=== PATIENT | female | born 1975 ===

== ENCOUNTER 2018-09-05 13:51 | Emergency (ER) | payer OTHER ==
--- NOTE | 2018-09-05 14:35 | Emergency Department Report ---
Blank Doc - Documentation Documentation: This is a 43-year-old female that presents lower back pain and radiation to bi lateral legs. Denies any trauma. Denies any urinary symptoms. This initial assessment/diagnostic orders/clinical plan/treatment(s) is/are subject to change based on patient's health status, clinical progression and re- assessment by fellow clinical providers in the ED. Further treatment and workup at subsequent clinical providers discretion. Patient/guardians urged not to elope from the ED as their condition may be serious if not clinically assessed and managed. Initial orders include: 1- Patient sent to [facility] for further evaluation and treatment 2- UA
[2018-09-05 14:40] VITALS: BP 113/61
--- NOTE | 2018-09-05 14:55 | Emergency Department Report ---
ED Back Pain/Injury HPI - General Chief Complaint: Extremity Problem,Nontraumatic Stated Complaint: HAND PAIN/BACK PAIN/FEET PAIN Time Seen by Provider: 09/05/18 14:31 Source: patient Limitations: No Limitations - History of Present Illness Initial Comments: Patient is a 43-year-old female who comes to the ER today complaining of back pain and arm pain and leg pain. [employer] has been used and patient reports that she went to her primary care physician yesterday and she was treated for back pain. She was sent home with Motrin. She is also given Celexa yesterday. The primary care doctor did check her urine and the patient was not told she had a UTI. The primary care did not do any blood work. Patient took the medications as instructed but states that the pain has gotten no better in fact it has gotten worse so she presents to the ER. pt has no urinary symptoms. no vaginal discharge or bleeding. no abd pain. no trauma. no fever. Vital signs are stable she has no chest pain or shortness of breath. She is ambulatory, nontoxic taking by mouth and without fever. Past medical history positive for anemia Past surgical history Hysterectomy Home medications Motrin and Celexa given to her yesterday Fe - Related Data Previous Rx's Medication Instructions Recorded Last Taken Type Cyclobenzaprine [Flexeril] 10 mg PO TID PRN #10 tablet 09/05/18 Unknown Rx predniSONE [Deltasone] 20 mg PO DAILY #5 tablet 09/05/18 Unknown Rx Allergies Allergy/AdvReac Type Severity Reaction Status Date / Time No Known Allergies Allergy Unverified 09/05/18 16:25 ED Review of Systems ROS: Stated complaint: HAND PAIN/BACK PAIN/FEET PAIN Other details as noted in HPI Comment: All other systems reviewed and negative Constitutional: denies: chills, fever Eyes: denies: eye pain ENT: denies: throat pain Respiratory: denies: orthopnea Cardiovascular: denies: chest pain Endocrine: denies: excessive sweating Gastrointestinal: denies: abdominal pain, nausea, vomiting Genitourinary: denies: urgency, dysuria Musculoskeletal: as per HPI, back pain Skin: denies: rash, lesions Neurological: denies: headache Psychiatric: denies: anxiety, depression Hematological/Lymphatic: denies: easy bleeding ED Past Medical Hx - Past Medical History anemia Surgical history: hysterectomy Psychiatric history: no pertinent history Family history: no significant family history - Social History Smoking Status: Never Smoker Alcohol use: none Drug use: none ED Back Pain Physical Exam - Exam General: Vital signs noted. No distress. Alert and acting appropriately. Back/Abdomen: No Abdominal Tenderness, No Perithoracic Tenderness, No Perilumbar Tenderness, No Sacroiliac Tenderness, No Flank Tenderness, No Straight Leg Raise Pain Neuro: Yes Normal Sensation, Yes Normal DTR's, Yes Normal Gait, No Motor Weakness ED Course Vital Signs 09/05/18 14:31 Temperature 98 F Pulse Rate 76 Respiratory 18 Rate Blood Pressure 113/61 O2 Sat by Pulse 95 Oximetry ED Medical Decision Making - Lab Data Result diagrams: 09/05/18 15:26 09/05/18 15:26 - Medical Decision Making no UTI at pcp yesterday no abd pain. no dysuria no CVA tenderness no fever no trauma no n/v/d non toxic ambulatory taking po - Differential Diagnosis ro symptomatic anemia Critical care attestation.: If time is entered above; I have spent that time in minutes in the direct care of this critically ill patient, excluding procedure time. ED Disposition Clinical Impression: Back pain Disposition: DC-01 TO HOME OR SELFCARE Is pt being admited?: No Does the pt Need Aspirin: No Condition: Stable Instructions: Low Back Strain (ED) Additional Instructions: MEDICATIONS ORDERED TODAY DIET TOLERATED ACTIVITY TOLERATED REST HYDRATE WELL WITH WATER MOTRIN OR TYLENOL FOR FEVER OR PAIN FOLLOW UP WITH PCP, REFERRAL BELOW. RETURN TO ER FOR WORSENING SYMPTOMS continue your meds given yesterday Prescriptions: predniSONE [Deltasone] 20 mg PO DAILY #5 tablet Cyclobenzaprine [Flexeril] 10 mg PO TID PRN #10 tablet PRN Reason: Muscle Spasm Referrals: [facility] [Outside] - 3-5 Days Time of Disposition: 15:38 Print Language: KINYARWANDA
[2018-09-05] MEDS ORDERED: FLEXERIL PO ONE (15:00)
[2018-09-05] MEDS ORDERED: DECADRON IM ONE (15:00)
[2018-09-05 15:37] LABS: Hematocrit 40.9 % (30.3-42.9); Mean Corpuscular HGB Conc 34 % (30-34); Mean Corpuscular Volume 94 fl (79-97); Platelet Count 295 K/mm3 (140-440); Red Blood Count 4.37 M/mm3 (3.65-5.03); Red Cell Distribution Width 13.3 % (13.2-15.2)
[2018-09-05 16:11] LABS: BUN/Creatinine Ratio 30; Blood Urea Nitrogen 9 mg/dL (7-17); Calcium 9.2 mg/dL (8.4-10.2); Hemolysis Index 7
== END 2018-09-05 16:24 | disposition home or self-care (01) ==
LOC: ED 13:51
DX: M54.9 Dorsalgia, unspecified (principal); M79.603 Pain in arm, unspecified; M79.606 Pain in leg, unspecified; Z90.710 Acquired absence of both cervix and uterus
CPT/HCPCS: 36415; 80048; 85027; 96372; 99283; J1100

== ENCOUNTER 2018-09-11 12:52 | Emergency (ER) | payer SELFPAY ==
[2018-09-11 12:59] VITALS: BP 107/67
--- NOTE | 2018-09-11 12:59 | Emergency Department Report ---
Blank Doc - Documentation Documentation: This is a 43-year-old female that presents with bilateral flank pain with dysu daniella. This initial assessment/diagnostic orders/clinical plan/treatment(s) is/are subject to change based on patient's health status, clinical progression and re- assessment by fellow clinical providers in the ED. Further treatment and workup at subsequent clinical providers discretion. Patient/guardians urged not to elope from the ED as their condition may be serious if not clinically assessed and managed. Initial orders include: 1- Patient sent to [facility] for further evaluation and treatment 2- UA/preg test
[2018-09-11 13:32] LABS: Bacteria,Urine 1+ /HPF (Negative); Bilirubin,Urine NEG (Negative); Blood,Urine NEG (Negative); Color,Urine Yellow (Yellow); HCG Qualitative,Urine Negative (Negative); Mucus,Urine FEW /HPF; Protein,Urine <15 mg/dL mg/dL (Negative); Urobilinogen,Urine < 2.0 mg/dL (<2.0)
--- NOTE | 2018-09-11 16:21 | Emergency Department Report ---
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 Patient states pain is radiating down into her right leg. Denies weakness or numbness. Patient states pain feels like a burning sensation. Patient states medication that she was given last week seemed to help her symptoms, however she ran out. Patient denies urinary symptoms. MD Complaint: back pain -: week(s) (1) Similar Symptoms Previously: No Radiation: right leg Severity: moderate Quality: burning Consistency: intermittent Improves With: supine Worsens With: sitting upright Context: unknown Associated Symptoms: denies: numbness, difficulty walking, difficulty urinating, incontinence - Related Data Previous Rx's Medication Instructions Recorded Last Taken Type Cyclobenzaprine [Flexeril 10 MG 10 mg PO TID PRN #10 tablet 09/11/18 Unknown Rx TAB] Naproxen [Naprosyn] 500 mg PO BID #20 tablet 09/11/18 Unknown Rx predniSONE [Deltasone] 20 mg PO DAILY #5 tablet 09/11/18 Unknown Rx Allergies Allergy/AdvReac Type Severity Reaction Status Date / Time No Known Allergies Allergy Unverified 09/05/18 16:25 ED Review of Systems ROS: Stated complaint: BACK PAIN Other details as noted in HPI Comment: All other systems reviewed and negative Constitutional: denies: chills, fever Genitourinary: other (denies incontinence) Musculoskeletal: back pain Neurological: denies: weakness, numbness ED Past Medical Hx - Past Medical History Previous Medical History?: Yes Additional medical history: anemia - Surgical History Past Surgical History?: No - Social History Smoking Status: Never Smoker Substance Use Type: None - Medications Home Medications: Home Medications Medication Instructions Recorded Confirmed Last Taken Type Cyclobenzaprine [Flexeril 10 MG 10 mg PO TID PRN #10 tablet 09/11/18 Unknown Rx TAB] Naproxen [Naprosyn] 500 mg PO BID #20 tablet 09/11/18 Unknown Rx predniSONE [Deltasone] 20 mg PO DAILY #5 tablet 09/11/18 Unknown Rx ED Physical Exam - General Limitations: No Limitations General appearance: alert, in no apparent distress - Head Head exam: Present: atraumatic, normocephalic - Eye Eye exam: Present: normal appearance - ENT ENT exam: Present: mucous membranes moist - Neck Neck exam: Present: normal inspection - Respiratory Respiratory exam: Present: normal lung sounds bilaterally. Absent: respiratory distress - Cardiovascular Cardiovascular Exam: Present: regular rate, normal rhythm - GI/Abdominal GI/Abdominal exam: Present: soft. Absent: distended, tenderness - Extremities Exam Extremities exam: Present: normal inspection, full ROM - Back Exam Back exam: Absent: tenderness, CVA tenderness (R), CVA tenderness (L), vertebral tenderness - Neurological Exam Neurological exam: Present: alert, oriented X3, CN II-XII intact, normal gait. Absent: motor sensory deficit - Psychiatric Psychiatric exam: Present: normal affect, normal mood - Skin Skin exam: Present: warm, dry, intact, normal color ED Course Vital Signs 09/11/18 12:57 Temperature 98.1 F Pulse Rate 76 Respiratory 16 Rate Blood Pressure 107/67 O2 Sat by Pulse 97 Oximetry ED Medical Decision Making - Medical Decision Making - one week hx of radiating, burning low back pain - no signs of cauda equina - nontender to palpation - pt ambulating around exam room and to restroom w/o difficulty - advised ortho f/u - return precautions given - Differential Diagnosis sciatica Critical care attestation.: If time is entered above; I have spent that time in minutes in the direct care of this critically ill patient, excluding procedure time. ED Disposition Clinical Impression: Lumbar radiculopathy Disposition: - TO HOME OR SELFCARE Is pt being admited?: No Condition: Stable Instructions: Lumbar Radiculopathy (ED) Prescriptions: predniSONE [Deltasone] 20 mg PO DAILY #5 tablet Cyclobenzaprine [Flexeril 10 MG TAB] 10 mg PO TID PRN #10 tablet PRN Reason: Muscle Spasm Naproxen [Naprosyn] 500 mg PO BID #20 tablet Referrals: PRIMARY CARE, [Primary Care Provider] - 3-5 Days DOLORES GERARD MD [Staff Physician] - 3-5 Days Time of Disposition: 16:22 Print Language: WOLOF
== END 2018-09-11 16:31 | disposition home or self-care (01) ==
LOC: ED 12:52
DX: M54.16 Radiculopathy, lumbar region (principal); Z86.2 Personal history of diseases of the blood and blood-forming organs and certain disorders involving the immune mechanism
CPT/HCPCS: 81001; 81025; 99283

== ENCOUNTER 2019-08-23 10:10 | Emergency (ER) | payer SELFPAY ==
[2019-08-23 10:18] VITALS: BP 119/67
[2019-08-23 11:34] LABS: Bacteria,Urine 1+ /HPF (Negative); Bilirubin,Urine NEG (Negative); Blood,Urine NEG (Negative); Color,Urine Yellow (Yellow); Protein,Urine <15 mg/dL mg/dL (Negative); Urobilinogen,Urine < 2.0 mg/dL (<2.0)
--- NOTE | 2019-08-23 11:49 | Emergency Department Report ---
ED General Adult HPI - General Chief complaint: Back Pain/Injury Stated complaint: LFT SIDE BACK BAINS/PAIN Time Seen by Provider: 08/23/19 10:45 Source: patient Mode of arrival: Ambulatory Limitations: No Limitations - History of Present Illness Initial comments: Patient is a 44-year-old female is presenting with 4 days of left lower back pain. Patient states there is no pain with movement and she denies any trauma. She states there is some mild dysuria. She has some urinary frequency. Patient vomited once on day 1 but has not had any nausea vomiting since. She denies fever. Severity scale (0 -10): 6 Quality: aching Consistency: constant - Related Data Previous Rx's Medication Instructions Recorded Last Taken Type Cyclobenzaprine [Flexeril 10 MG 10 mg PO TID PRN #10 tablet 09/11/18 Unknown Rx TAB] Naproxen [Naprosyn] 500 mg PO BID #20 tablet 09/11/18 Unknown Rx predniSONE [Deltasone] 20 mg PO DAILY #5 tablet 09/11/18 Unknown Rx Ibuprofen [Motrin 800 MG tab] 800 mg PO Q8HR PRN #10 tablet 08/23/19 Unknown Rx Nitrofurantoin [place]/M-Cryst 100 mg PO Q12HR #14 capsule 08/23/19 Unknown Rx [Macrobid CAP] Phenazopyridine [Pyridium] 200 mg PO BID #6 tab 08/23/19 Unknown Rx Allergies Allergy/AdvReac Type Severity Reaction Status Date / Time No Known Allergies Allergy Unverified 09/05/18 16:25 ED Review of Systems ROS: Stated complaint: LFT SIDE BACK BAINS/PAIN Other details as noted in HPI Comment: All other systems reviewed and negative ED Past Medical Hx - Past Medical History Previous Medical History?: Yes Additional medical history: anemia - Surgical History Past Surgical History?: No - Social History Smoking Status: Never Smoker Substance Use Type: None - Medications Home Medications: Home Medications Medication Instructions Recorded Confirmed Last Taken Type Cyclobenzaprine [Flexeril 10 MG 10 mg PO TID PRN #10 tablet 09/11/18 Unknown Rx TAB] Naproxen [Naprosyn] 500 mg PO BID #20 tablet 09/11/18 Unknown Rx predniSONE [Deltasone] 20 mg PO DAILY #5 tablet 09/11/18 Unknown Rx Ibuprofen [Motrin 800 MG tab] 800 mg PO Q8HR PRN #10 tablet 08/23/19 Unknown Rx Nitrofurantoin [place]/M-Cryst 100 mg PO Q12HR #14 capsule 08/23/19 Unknown Rx [Macrobid CAP] Phenazopyridine [Pyridium] 200 mg PO BID #6 tab 08/23/19 Unknown Rx ED Physical Exam - General Limitations: No Limitations General appearance: alert, in no apparent distress - Head Head exam: Present: atraumatic, normocephalic - Eye Eye exam: Present: normal appearance - ENT ENT exam: Present: mucous membranes moist - Neck Neck exam: Present: normal inspection - Respiratory Respiratory exam: Present: normal lung sounds bilaterally. Absent: respiratory distress, wheezes, rales, rhonchi - Cardiovascular Cardiovascular Exam: Present: regular rate, normal rhythm, normal heart sounds. Absent: systolic murmur, diastolic murmur, rubs, gallop - GI/Abdominal GI/Abdominal exam: Present: soft, normal bowel sounds. Absent: distended, tenderness, guarding - Extremities Exam Extremities exam: Present: normal inspection - Back Exam Back exam: Present: normal inspection. Absent: tenderness - Neurological Exam Neurological exam: Present: alert, oriented X3 - Psychiatric Psychiatric exam: Present: normal affect, normal mood - Skin Skin exam: Present: warm, dry, intact, normal color. Absent: rash ED Course Vital Signs 08/23/19 10:12 Temperature 97.8 F Pulse Rate 79 Respiratory 18 Rate Blood Pressure 119/67 O2 Sat by Pulse 95 Oximetry ED Medical Decision Making - Lab Data Lab Results 08/23/19 Range/Units Unknown Urine Color Yellow (Yellow) Urine Turbidity Slightly-cloudy (Clear) Urine pH 8.0 H (5.0-7.0) Ur Specific [place] 1.009 (1.003-1.030) Urine Protein <15 mg/dl (Negative) mg/dL Urine Glucose (UA) Neg (Negative) mg/dL Urine Ketones Neg (Negative) mg/dL Urine Blood Neg (Negative) Urine Nitrite Neg (Negative) Urine Bilirubin Neg (Negative) Urine Urobilinogen < 2.0 (<2.0) mg/dL Ur Leukocyte Esterase Lg (Negative) Urine WBC (Auto) 14.0 H (0.0-6.0) /HPF Urine RBC (Auto) 3.0 (0.0-6.0) /HPF U Epithel Cells (Auto) 4.0 (0-13.0) /HPF Urine Bacteria (Auto) 1+ (Negative) /HPF - Medical Decision Making Patient with use urinary tract infection. This may be tracking towards the left kidney causing the one-sided pain however there is no CVA tenderness or fever. Is likely patient does not have pyelonephritis yet however she does require emergent treatment to halt the progress of this infection. Patient be discharged home with a prescription for antibiotics. Critical care attestation.: If time is entered above; I have spent that time in minutes in the direct care of this critically ill patient, excluding procedure time. ED Disposition Clinical Impression: Acute cystitis Qualifiers: Hematuria presence: without hematuria Qualified Code(s): N30.00 - Acute cystitis without hematuria Disposition: DC-01 TO HOME OR SELFCARE Is pt being admited?: No Does the pt Need Aspirin: No Condition: Stable Instructions: Urinary Tract Infection in Women (ED) Referrals: PRIMARY CARE, [Primary Care Provider] - 3-5 Days Time of Disposition: 11:48 Print Language: CYMRAES
== END 2019-08-23 11:52 | disposition home or self-care (01) ==
LOC: ED 10:10
DX: N30.00 Acute cystitis without hematuria (principal); Z86.2 Personal history of diseases of the blood and blood-forming organs and certain disorders involving the immune mechanism; Z79.899 Other long term (current) drug therapy
CPT/HCPCS: 81001; 87086